=== PATIENT | male | born 1995 | race Caucasian/White ===

== ENCOUNTER 2017-03-03 21:21 | Emergency (ER) | payer BC ==
[~2017-03-03] VITALS: Ht 185.4 cm; Wt 79.5 kg
[2017-03-03 21:34] VITALS: TEMP 98
[2017-03-03 23:40] VITALS: BP 134/73; PULSE 64
== END 2017-03-03 23:44 | disposition home or self-care (01) ==
LOC: COL.ER 21:21
DX: S39.011A Strain of muscle, fascia and tendon of abdomen, initial encounter (principal)